=== PATIENT | female | born 1985 | race Caucasian/White ===

== ENCOUNTER → 2023-07-28 | Outpatient (CLI) | payer BC ==
[~2023-07-28] MED LIST: IBU600 MG PO; MOTRIN 600600 MG/TAB PO; NORCO 325 MG-51 TAB PO; PERCOCET 325 MG1 TA2 PO; PREDNISONE20 MG PO; PRENATAL; SENOKOT S 50 MG1 TAB PO; VALTREX1 GM PO; VISTARIL 2525 MG/CAP PO
== END ==
LOC: COL.RAD 07:39 → MC.RAD 07:39 → COL.RAD 08:00
DX: Z12.31 Encounter for screening mammogram for malignant neoplasm of breast (principal)